=== PATIENT | female | born 1985 | race African-American/Black ===

== ENCOUNTER 2016-05-10 11:37 | Emergency (ER) | payer MEDICAID ==
[2016-05-10] MEDS ORDERED: ONDANSETRON 4 MG TAB.RAPDIS PO ONE (11:55)
--- NOTE | 2016-05-10 11:56 | ER Document Report ---
ED Medical Screen (RME) - General Chief Complaint: Cough Stated Complaint: TROUBLE BREATHING/COUGH Mode of Arrival: Ambulatory Information source: Patient Notes: Patient complains of cough and rib pain for the past 2 months. Patient feels like lateral sides of chest seemed to be swollen. Patient denies any fever or urinary symptoms. Patient denies any abdominal pain but does complain of some nausea. TRAVEL OUTSIDE OF THE [place] IN LAST 30 DAYS: No - Related Data Allergies/Adverse Reactions: No Known Allergies Allergy (Verified 04/15/16 08:38) Past Medical History - Past Medical History Cardiac Medical History: Reports: Hx Hypertension - on meds Denies: Hx Coronary Artery Disease, Hx Heart Attack Pulmonary Medical History: Reports: Hx Asthma - hx wheezing , Hx Bronchitis Denies: Hx COPD, Hx Pneumonia Neurological Medical History: Denies: Hx Cerebrovascular Accident, Hx Seizures Musculoskeltal Medical History: Denies Hx Arthritis Psychiatric Medical History: Reports: Hx Anxiety Past Surgical History: Reports: Hx Section - X 3, Hx Hysterectomy - Immunizations Hx Diphtheria, Pertussis, Tetanus Vaccination: Yes Physical Exam - Vital signs Vitals: Temp Pulse Resp BP Pulse Ox 98.3 F 107 H 20 149/86 H 99 05/10/16 11:47 05/10/16 11:47 05/10/16 11:47 05/10/16 11:47 05/10/16 11:47 - Respiratory Respiratory status: No respiratory distress Breath sounds: Nonproductive cough Notes: No objective swelling appreciated Course - Vital Signs Vital signs: Temp Pulse Resp BP Pulse Ox 98.3 F 107 H 20 149/86 H 99 05/10/16 11:47 05/10/16 11:47 05/10/16 11:47 05/10/16 11:47 05/10/16 11:47
[2016-05-10 12:28] LABS: ABSOLUTE EOSINOPHILS # (AUTO) 0.2 10^3/uL (0.0-0.6); ABSOLUTE LYMPHOCYTES (AUTO) 4.1 10^3/uL (0.5-4.7); ABSOLUTE MONOCYTES (AUTO) 0.6 10^3/uL (0.1-1.4); ABSOLUTE NEUT (AUTO) 5.4 10^3/uL (1.7-8.2); BASOPHILS % (AUTO) 0.4 % (0-2); EOSINOPHILS % (AUTO) 1.7 % (0-6); HEMATOCRIT 38.1 % (36.0-47.0); HEMOGLOBIN 12.4 g/dL (12.0-15.5); HGB HCT DIFFERENCE -0.9; LYMPHOCYTES % (AUTO) 39.8 % (13-45); MEAN CORPUSCULAR HEMOGLOBIN 29.2 pg (27.0-33.4); MEAN CORPUSCULAR HGB CONC 32.7 g/dL (32.0-36.0); MEAN CORPUSCULAR VOLUME 89 fl (80-97); MONOCYTES % (AUTO) 5.6 % (3-13); RED BLOOD COUNT 4.27 10^6/uL (3.72-5.28); RED CELL DISTRIBUTION WIDTH 15.7 % (11.5-14.0); SEGMENTED NEUTROPHILS % (AUTO) 52.5 % (42-78); WHITE BLOOD COUNT 10.3 10^3/uL (4.0-10.5)
[2016-05-10 12:30] LABS: APPEARANCE,URINE CLEAR; BILIRUBIN,URINE NEGATIVE (NEGATIVE); GLUCOSE, URINE NEGATIVE (NEGATIVE); KETONES,URINE NEGATIVE (NEGATIVE); LEUKOCYTE ESTERASE,URINE NEGATIVE (NEGATIVE); NITRITE,URINE NEGATIVE (NEGATIVE); PROTEIN,URINE NEGATIVE (NEGATIVE); UROBILINOGEN,URINE NEGATIVE mg/dL (<2.0)
[2016-05-10 12:52] LABS: ALANINE AMINOTRANSFERASE 46 U/L (9-52); ALBUMIN 4.4 g/dL (3.5-5.0); ALKALINE PHOSPHATASE 123 U/L (38-126); ANION GAP 11 (5-19); ASPARTATE AMINO TRANSFERASE 35 U/L (14-36); BILIRUBIN,TOTAL 0.7 mg/dL (0.2-1.3); BLOOD UREA NITROGEN 15 mg/dL (7-20); CALCIUM 9.7 mg/dL (8.4-10.2); CARBON DIOXIDE 30 mmol/L (22-30); CHLORIDE 100 mmol/L (98-107); CREATININE RESULT 0.57 mg/dL (0.52-1.25); GLUCOSE 92 mg/dL (75-110); LIPASE 64.1 U/L (23-300); POTASSIUM 4.9 mmol/L (3.6-5.0); SODIUM 140.9 mmol/L (137-145)
--- NOTE | 2016-05-10 14:04 | ER Document Report ---
ED General - General Chief Complaint: Cough Stated Complaint: TROUBLE BREATHING/COUGH Mode of Arrival: Ambulatory Notes: Patient presents to the emergency department with complaints of cough trouble breathing for the past month. She denies fever vomiting diarrhea. She also reports she woke up this morning and her body was really sore. TRAVEL OUTSIDE OF THE [place] IN LAST 30 DAYS: No - HPI Onset: Other Onset/Duration: Persistent Quality of pain: Achy Severity: Mild Pain Level: 1 Associated symptoms: Nonproductive cough Exacerbated by: Denies Relieved by: Denies Similar symptoms previously: Yes Recently seen / treated by doctor: Yes - Related Data Allergies/Adverse Reactions: No Known Allergies Allergy (Verified 04/15/16 08:38) Past Medical History - General Information source: Patient - Social History Smoking Status: Unknown if Ever Smoked Cigarette use (# per day): No Frequency of alcohol use: None Drug Abuse: None Occupation: none Lives with: Family Family History: Other - Mother has heart murmur and palpitations chronically - Past Medical History Cardiac Medical History: Reports: Hx Hypertension - on meds Denies: Hx Coronary Artery Disease, Hx Heart Attack Pulmonary Medical History: Reports: Hx Asthma - hx wheezing , Hx Bronchitis Denies: Hx COPD, Hx Pneumonia Neurological Medical History: Denies: Hx Cerebrovascular Accident, Hx Seizures Musculoskeltal Medical History: Denies Hx Arthritis Psychiatric Medical History: Reports: Hx Anxiety Past Surgical History: Reports: Hx Section - X 3, Hx Hysterectomy - Immunizations Hx Diphtheria, Pertussis, Tetanus Vaccination: Yes Review of Systems - Review of Systems Notes: Review HPI for review of systems., All other systems negative Physical Exam - Vital signs Vitals: Temp Pulse Resp BP Pulse Ox 98.3 F 107 H 20 149/86 H 99 05/10/16 11:47 05/10/16 11:47 05/10/16 11:47 05/10/16 11:47 05/10/16 11:47 - Notes Notes: PHYSICAL EXAMINATION: GENERAL: Well-appearing and in no acute distress Nontoxic looking HEAD: Atraumatic, normocephalic. EYES: Pupils equal round and reactive to light, extraocular movements intact, sclera anicteric, conjunctiva are normal. ENT: TM good,nares patent, oropharynx clear without exudates. clear voice, good airway Moist mucous membranes. hoarse voice NECK: Normal range of motion, supple without lymphadenopathy LUNGS: CTAB and equal. No wheezes rales or rhonchi. HEART: Regular rate and rhythm without murmurs ABDOMEN: Soft, no tenderness. No guarding, no rebound EXTREMITIES: Normal range of motion, no pitting edema. No cyanosis. NEUROLOGICAL: Cranial nerves grossly intact. Normal sensory/motor exams. PSYCH: Normal mood, normal affect. SKIN: Warm, Dry, normal turgor, no rashes or lesions noted Course - Re-evaluation Re-evalutation: 05/10/16 14:16 She instructed on postnasal drip. Patient instructed on decongestant but does not affect his blood pressure. Patient was also instructed to follow up with the family care provider for for physical. - Vital Signs Vital signs: Temp Pulse Resp BP Pulse Ox 97.5 F 92 18 141/87 H 97 05/10/16 14:17 05/10/16 14:17 05/10/16 14:17 05/10/16 14:17 05/10/16 14:17 - Laboratory Result Diagrams: 05/10/16 12:15 05/10/16 12:15 Laboratory results interpreted by me: 05/10/16 12:15 RDW 15.7 H - Diagnostic Test Radiology reviewed: Image reviewed, Reports reviewed Discharge - Discharge Clinical Impression: Cough, Difficulty breathing Condition: Stable Disposition: HOME, SELF-CARE Instructions: Family Physicians / Practices Additional Instructions: *You have been evaluated for a cough, difficulty breathing *Increase fluids *Monitor your temperature, take Tylenol as indicated *Follow up with a primary care provider within one week *Return to ED for increasing fever, cough, worsening condition, changes, needs Forms: Elevated Blood Pressure Referrals: MANJEET COLEMAN MD [Primary Care Provider] - Follow up in 3-5 days
[2016-05-10 14:20] VITALS: BP 141/87
== END 2016-05-10 14:20 | disposition home or self-care (01) ==
LOC: ER 11:37
DX: R05 Cough (principal); R06.00 Dyspnea, unspecified; R49.0 Dysphonia; I10 Essential (primary) hypertension; J45.909 Unspecified asthma, uncomplicated
CPT/HCPCS: 36415; 71020; 80053; 81001; 83690; 85025; 99283

== ENCOUNTER 2017-01-08 18:19 | Emergency (ER) | payer MEDICAID ==
--- NOTE | 2017-01-08 18:30 | ER Document Report ---
ED General - General Mode of Arrival: Medic Information source: Patient, Emergency Med Personnel TRAVEL OUTSIDE OF THE [place] IN LAST 30 DAYS: No - HPI Onset: Other - Refer to HPI notes <LUIS BRYANT - Last Filed: 01/08/17 18:57> <CHARLEE PARIKH - Last Filed: 01/09/17 00:35> - General Stated Complaint: FAINTING Time Seen by Provider: 01/08/17 18:27 - HPI Notes: Patient is a 31-year-old female presented emergency department via EMS for possible syncope. Patient ate breakfast this morning and then went to go sell plasma. After finishing she felt weak and went to eat with family members. Family states that she passed out some at the table mother eating; this lasted for a few minutes. Patient then drank some water and was feeling a little better. On the way home the patient was vomiting and had a syncopal episode again. Patient has a history of hypertension and takes both lisinopril and losartan for such. Patient does not know her doses of her hypertension medications. Patient has history of endometriosis and has had both hysterectomy and then a bilateral oophorectomy in July. She has also had a section 3. Patient states that she was going to [facility] and they were prescribing her hypertension medications. (LUIS BRYANT) - Related Data Allergies/Adverse Reactions: No Known Allergies Allergy (Verified 04/15/16 08:38) Past Medical History - General Information source: Patient - Social History Smoking Status: Current Every Day Smoker Cigarette use (# per day): Yes - 1/2 ppd Chew tobacco use (# tins/day): No Smoking Education Provided: No Frequency of alcohol use: Social Drug Abuse: None Family History: Other - Mother has heart murmur and palpitations chronically Patient has suicidal ideation: No Patient has homicidal ideation: No - Past Medical History Cardiac Medical History: Reports: Hx Hypertension - on meds Pulmonary Medical History: Reports: Hx Asthma, Hx Bronchitis Psychiatric Medical History: Reports: Hx Anxiety Past Surgical History: Reports: Hx Section - X 3, Hx Hysterectomy - Immunizations Hx Diphtheria, Pertussis, Tetanus Vaccination: Yes <LUIS BRYANT - Last Filed: 01/08/17 18:57> Review of Systems - Review of Systems Constitutional: See HPI, Weakness EENT: No symptoms reported Cardiovascular: See HPI, Syncope Respiratory: No symptoms reported Gastrointestinal: No symptoms reported Genitourinary: No symptoms reported Female Genitourinary: No symptoms reported Musculoskeletal: No symptoms reported Skin: No symptoms reported Hematologic/Lymphatic: No symptoms reported Neurological/Psychological: See HPI -: Yes All other systems reviewed and negative <LUIS BRYANT - Last Filed: 01/08/17 18:57> Physical Exam - Vital signs Interpretation: Hypotensive - Slightly <LUIS BRYANT - Last Filed: 01/08/17 18:57> <CHARLEE PARIKH - Last Filed: 01/09/17 00:35> - Vital signs Vitals: Resp BP Pulse Ox 16 103/92 H 99 01/08/17 18:34 01/08/17 18:34 01/08/17 18:34 - Notes Notes: GENERAL: Alert, interacts well. No acute distress. HEAD: Normocephalic, atraumatic. EYES: Appear normal. Pupils equal, round, and reactive to light. ENT: Moist mucus membranes, tongue midline. NECK: Full range of motion. Supple. Trachea midline. LUNGS: Clear to auscultation bilaterally, no wheezes, rales, or rhonchi. No respiratory distress. HEART: Regular rate and rhythm. No murmurs, gallops, or rubs. ABDOMEN: Morbidly obese. Soft, non-tender. Non-distended. Normal bowel sounds. EXTREMITIES: Moves all 4 extremities spontaneously. Normal strength. No edema. NEUROLOGICAL: Alert and oriented x3. Normal speech, patient whispers when speaking. No focal neurological deficits. GSC 15. PSYCH: Normal affect, normal mood. SKIN: Warm, dry, normal turgor. No rashes or lesions noted. (LUIS BRYANT) Course <LUIS BRYANT - Last Filed: 01/08/17 18:57> - Laboratory Result Diagrams: 01/08/17 23:20 01/08/17 20:35 <CHARLEE PARIKH - Last Filed: 01/09/17 00:35> - Re-evaluation Re-evalutation: 01/08/17 23:43 Patient's blood pressure came back up with IV fluids. The initial CBC had a slight leukocytosis, repeat CBC was improved. Chemistries and cardiac enzymes are unremarkable. Patient states she still feels poorly and feels weak. I suspect she may well have had a viral illness compounded by the plasma removal today. I have advised the patient we will discharge her home to bed rest. She should drink plenty of fluids and get plenty of rest. She should return to the emergency room if any new or worsening symptoms. (CHARLEE PARIKH) - Vital Signs Vital signs: Temp Pulse Resp BP Pulse Ox 16 174/84 H 85 L 01/09/17 00:17 01/09/17 00:17 01/09/17 00:16 - Laboratory Laboratory results interpreted by me: 01/08/17 01/08/17 01/08/17 19:40 20:35 20:35 WBC 14.7 H Hgb RDW 15.6 H Absolute Neutrophils 10.7 H Est GFR (Non-Af Amer) 57 L Glucose 116 H Calcium 8.3 L AST 37 H Albumin 3.4 L Urine Protein 100 H 01/08/17 23:20 WBC 13.9 H Hgb 11.8 L RDW 15.6 H Absolute Neutrophils 9.9 H Est GFR (Non-Af Amer) Glucose Calcium AST Albumin Urine Protein Discharge <LUIS BRYANT - Last Filed: 01/08/17 18:57> <CHARLEE PARIKH - Last Filed: 01/09/17 00:35> - Discharge Clinical Impression: Syncope and collapse, Weakness Condition: Stable Disposition: HOME, SELF-CARE Additional Instructions: Syncopal Episode: Syncope (fainting or near-fainting) can occur from many different health problems. Or it can be a simple fainting spell requiring no treatment. It is safe for you to go home, but further evaluation will likely be necessary. Your work-up may include tests for internal bleeding, heart disease, medication problems, or near-strokes. Tests are not always required, however, depending on the nature of your problem. The warning signs of an impending faint include: dizziness, lightheadedness , nausea, hot flashes, tingling, and weakness. If this happens, lay down and put your feet up, then wait until all of these symptoms have passed before standing up again. If these episodes become recurrent, or if you develop chest pain, heart palpitations, mental confusion, blurred vision, or headache, then you should call the physician, or go to the emergency room. Weakness: We did not find a definite cause for your weakness. This may require further medical tests. Weakness can be caused by infection, physical exhaustion , rapid weight loss, dehydration, or medicine side effects. Diseases of the muscles, heart, nerves, and blood vessels can make you weak. Sometimes the problem is simply depression or lack of exercise. You should get plenty of rest. Unless the doctor tells you otherwise, it's usually best to add short periods of regular mild exercise. Eat a nutritious diet with multiple small, low-sugar meals. If symptoms continue, additional medical evaluation will be necessary. Be sure to follow up as instructed. If you become very dizzy, nauseated, or feel like you're going to faint, lie down right away. Wait until the symptoms have passed before you get up again. Stand up slowly. Call the doctor or return if you develop chest pain, abdominal pain, severe headache, irregular heartbeat or very fast pulse, confusion, vision problems, fever, muscular pain, or any other new symptom. //////////////////////////////////////////////////////////////////////////////// //////////////////////////////////////////////////////////////////////////////// ///////////////// I suspect you most likely have a viral illness and the symptoms were compounded by the plasma removal today. You should get plenty of rest and sleep. Drink plenty of fluids. Take Tylenol for pain if needed. Follow-up with your doctor if you do not continue to improve. RETURN TO THE EMERGENCY ROOM IF ANY NEW OR WORSENING SYMPTOMS. Alex Attestation: 01/08/17 19:42 I personally performed the services described in the documentation, reviewed and edited the documentation which was dictated to the scribe in my presence, and it accurately records my words and actions. (CHARLEE PARIKH) Scribe Documentation - Scribe Written by Alex:: Alex Sousa, 01/08/2017 1845 acting as scribe for :: Iram <LUIS BRYANT - Last Filed: 01/08/17 18:57>
[2017-01-08] MEDS ORDERED: ONDANSETRON HCL INJ/PF 4 MG/2 ML SDV IV ONE (18:54)
[2017-01-08] MEDS: NORMAL SALINE 1000 ML 1,000 ML IV PRN ×2 (19:04→19:05)
[2017-01-08 20:09] LABS: APPEARANCE,URINE CLOUDY; BILIRUBIN,URINE NEGATIVE (NEGATIVE); GLUCOSE, URINE NEGATIVE (NEGATIVE); KETONES,URINE NEGATIVE (NEGATIVE); LEUKOCYTE ESTERASE,URINE NEGATIVE (NEGATIVE); NITRITE,URINE NEGATIVE (NEGATIVE); PROTEIN,URINE 100 mg/dL (NEGATIVE); URINE SPECIFIC GRAVITY 1.009; UROBILINOGEN,URINE NEGATIVE mg/dL (<2.0)
[2017-01-08 20:53] LABS: ABSOLUTE BASOPHILS # (AUTO) 0.1 10^3/uL (0.0-0.2); ABSOLUTE EOSINOPHILS # (AUTO) 0.1 10^3/uL (0.0-0.6); ABSOLUTE LYMPHOCYTES (AUTO) 2.8 10^3/uL (0.5-4.7); ABSOLUTE NEUT (AUTO) 10.7 10^3/uL (1.7-8.2); BASOPHILS % (AUTO) 0.5 % (0-2); EOSINOPHILS % (AUTO) 0.8 % (0-6); HEMATOCRIT 40.8 % (36.0-47.0); HEMOGLOBIN 13.3 g/dL (12.0-15.5); HGB HCT DIFFERENCE -0.9; MEAN CORPUSCULAR HEMOGLOBIN 29.4 pg (27.0-33.4); MEAN CORPUSCULAR HGB CONC 32.5 g/dL (32.0-36.0); MEAN CORPUSCULAR VOLUME 90 fl (80-97); MONOCYTES % (AUTO) 6.9 % (3-13); RED BLOOD COUNT 4.51 10^6/uL (3.72-5.28); RED CELL DISTRIBUTION WIDTH 15.6 % (11.5-14.0); SEGMENTED NEUTROPHILS % (AUTO) 72.8 % (42-78); WHITE BLOOD COUNT 14.7 10^3/uL (4.0-10.5)
[2017-01-08 21:13] LABS: ALANINE AMINOTRANSFERASE 43 U/L (9-52); ALBUMIN 3.4 g/dL (3.5-5.0); ALKALINE PHOSPHATASE 96 U/L (38-126); ANION GAP 10 (5-19); ASPARTATE AMINO TRANSFERASE 37 U/L (14-36); BILIRUBIN,DIRECT 0.4 mg/dL (0.0-0.4); BILIRUBIN,TOTAL 0.5 mg/dL (0.2-1.3); BLOOD UREA NITROGEN 18 mg/dL (7-20); CALCIUM 8.3 mg/dL (8.4-10.2); CARBON DIOXIDE 26 mmol/L (22-30); CHLORIDE 102 mmol/L (98-107); CREATINE KINASE 64 U/L (30-135); CREATININE RESULT 1.11 mg/dL (0.52-1.25); GLUCOSE 116 mg/dL (75-110); POTASSIUM 3.9 mmol/L (3.6-5.0); SODIUM 138.3 mmol/L (137-145); TOTAL PROTEIN 6.3 g/dL (6.3-8.2)
--- NOTE | 2017-01-08 21:52 | EKG REPORT ---
SEVERITY:- ABNORMAL ECG - SINUS RHYTHM PROBABLE LEFT ATRIAL ABNORMALITY PROBABLE LEFT VENTRICULAR HYPERTROPHY PROLONGED QT INTERVAL : Confirmed by: Yessenia Mathews 08-Jan-2017 21:51:48
[2017-01-08] MEDS ORDERED: DEXTROSE 5%-LACTATED RINGERS 1,000 ML IV ONE (22:04)
--- NOTE | 2017-01-08 22:44 | RADIOLOGY REPORT (SQ) ---
EXAM DESCRIPTION: CHEST SINGLE VIEW COMPLETED DATE/TIME: 01/08/2017 10:32 pm REASON FOR STUDY: hypotension COMPARISON: 05/10/2016 EXAM PARAMETERS: NUMBER OF VIEWS: One view. TECHNIQUE: Single frontal radiographic view of the chest acquired. RADIATION DOSE: NA LIMITATIONS: None. FINDINGS: LUNGS AND PLEURA: No opacities, masses or pneumothorax. No pleural effusion. MEDIASTINUM AND HILAR STRUCTURES: No masses. Contour normal. HEART AND VASCULAR STRUCTURES: Heart normal in size. Normal vasculature. BONES: No acute findings. HARDWARE: None in the chest. OTHER: No other significant finding. IMPRESSION: NO ACUTE RADIOGRAPHIC FINDING IN THE CHEST. TECHNICAL DOCUMENTATION: JOB ID: [id number]
[2017-01-08] MEDS ORDERED: KETOROLAC TROMETHAMINE INJ/PF 30 MG/1 ML SDV IV ONE (22:55)
[2017-01-08 23:30] LABS: ABSOLUTE BASOPHILS # (AUTO) 0.1 10^3/uL (0.0-0.2); ABSOLUTE EOSINOPHILS # (AUTO) 0.1 10^3/uL (0.0-0.6); ABSOLUTE LYMPHOCYTES (AUTO) 3.1 10^3/uL (0.5-4.7); ABSOLUTE MONOCYTES (AUTO) 0.7 10^3/uL (0.1-1.4); ABSOLUTE NEUT (AUTO) 9.9 10^3/uL (1.7-8.2); BASOPHILS % (AUTO) 0.7 % (0-2); EOSINOPHILS % (AUTO) 1.1 % (0-6); HEMATOCRIT 36.5 % (36.0-47.0); HEMOGLOBIN 11.8 g/dL (12.0-15.5); HGB HCT DIFFERENCE -1.1; MEAN CORPUSCULAR HGB CONC 32.2 g/dL (32.0-36.0); MEAN CORPUSCULAR VOLUME 90 fl (80-97); MONOCYTES % (AUTO) 5.3 % (3-13); RED BLOOD COUNT 4.06 10^6/uL (3.72-5.28); RED CELL DISTRIBUTION WIDTH 15.6 % (11.5-14.0); SEGMENTED NEUTROPHILS % (AUTO) 70.9 % (42-78); WHITE BLOOD COUNT 13.9 10^3/uL (4.0-10.5)
[2017-01-09 00:46] VITALS: BP 114/69
== END 2017-01-09 01:22 | disposition home or self-care (01) ==
LOC: ER 18:19
DX: R55 Syncope and collapse (principal); R53.1 Weakness; D72.829 Elevated white blood cell count, unspecified; R11.10 Vomiting, unspecified; I10 Essential (primary) hypertension; F17.210 Nicotine dependence, cigarettes, uncomplicated; J45.909 Unspecified asthma, uncomplicated; Z79.899 Other long term (current) drug therapy; Z98.890 Other specified postprocedural states
CPT/HCPCS: 93005; 99284; 96361; 96375; 96365; 36415; 87040; 82550; 85025; 80053; 81001; 84484; 71010; 93010; J1885; J2405; J7030

== ENCOUNTER 2017-07-12 12:28 | Emergency (ER) | payer MEDICAID ==
[2017-07-12 12:49] VITALS: BP 149/93
--- NOTE | 2017-07-12 14:08 | RADIOLOGY REPORT (SQ) ---
EXAM DESCRIPTION: CHEST PA/LAT COMPLETED DATE/TIME: 07/12/2017 1:59 pm REASON FOR STUDY: cough congestion fever COMPARISON: 05/10/2016 EXAM PARAMETERS: NUMBER OF VIEWS: two views TECHNIQUE: Digital Frontal and Lateral radiographic views of the chest acquired. RADIATION DOSE: NA LIMITATIONS: none FINDINGS: LUNGS AND PLEURA: No opacities, masses or pneumothorax. No pleural effusion. MEDIASTINUM AND HILAR STRUCTURES: No masses or contour abnormalities. HEART AND VASCULAR STRUCTURES: Heart normal size. No evidence for failure. BONES: No acute findings. HARDWARE: None in the chest. OTHER: No other significant finding. IMPRESSION: NO SIGNIFICANT RADIOGRAPHIC FINDING IN THE CHEST. TECHNICAL DOCUMENTATION: JOB ID: [id number] [employer]- All Rights Reserved Reading location - IP/workstation name: [email or web address]
--- NOTE | 2017-07-12 14:35 | ER Document Report ---
ED Flu Like - General Chief Complaint: Pain All Over Stated Complaint: FLU LIKE SYMPTOMS Time Seen by Provider: 07/12/17 13:03 Mode of Arrival: Ambulatory Information source: Patient Notes: 32-year-old female presents to ED for complaint of cough cold congestion body aches 4 days taken [id number] medication for this. TRAVEL OUTSIDE OF THE [place] IN LAST 30 DAYS: No - HPI Onset: Other - 4 days Timing/Duration: Better Severity: Moderate Pain Level: 3 CO exposure: No Shortness of breath: Moderate Associated symptoms: Body/muscle aches, Nonproductive cough, Rhinnorhea, Sinus pain/drainage, Sore throat Similar symptoms previously: Yes Recently seen / treated by doctor: No - Related Data Allergies/Adverse Reactions: No Known Allergies Allergy (Verified 07/12/17 13:51) Past Medical History - General Information source: Patient - Social History Smoking Status: Current Every Day Smoker Cigarette use (# per day): Yes - 1/2 ppd Chew tobacco use (# tins/day): No Smoking Education Provided: Yes - 4 min Frequency of alcohol use: Occasional Drug Abuse: Marijuana Occupation: [email or web address] Lives with: Family Family History: Arthritis, CAD, COPD, DM, Hyperlipidemia, Hypertension, Malignancy, Thyroid Disfunction, Other - Mother has heart murmur and palpitations chronically. denies: CVA Patient has suicidal ideation: No Patient has homicidal ideation: No - Past Medical History Cardiac Medical History: Reports: Hx Hypertension - on meds Pulmonary Medical History: Reports: Hx Asthma, Hx Bronchitis EENT Medical History: Reports: None Neurological Medical History: Reports: None Endocrine Medical History: Reports: None Renal/ Medical History: Reports: Hx Ovarian Cysts, Other - Endometriosis Malignancy Medical History: Reports: None GI Medical History: Reports: None Musculoskeltal Medical History: Reports Hx Arthritis Skin Medical History: Reports None Psychiatric Medical History: Reports: Hx Anxiety, Hx Depression Traumatic Medical History: Reports: None Infectious Medical History: Reports: None Past Surgical History: Reports: Hx Section - X 3, Hx Gynecologic Surgery - 6 surgeries, Hx Hysterectomy - Immunizations Hx Diphtheria, Pertussis, Tetanus Vaccination: Yes Review of Systems - Review of Systems Notes: Constitutional: [PRESENT: as per HPI. ABSENT: weight gain, weight loss] positive for fever chills headaches Eyes: [ABSENT: visual disturbances] Ears: [ABSENT: hearing changes] Nasopharyngeal: Runny nose congestion sore throat Cardiovascular: [ABSENT: chest pain, dyspnea on exertion, edema, orthropnea, palpitations] Respiratory: Cough and congestion Gastrointestinal: [ABSENT: abdominal pain, constipation, diarrhea, hematemesis, hematochezia, nausea, vomiting] Genitourinary: [ABSENT: dysuria, hematuria] Musculoskeletal: [ABSENT: joint swelling] body aches Integumentary: [ABSENT: rash, wounds] Neurological: [ABSENT: abnormal gait, abnormal speech, confusion, dizziness, focal weakness, syncope] Psychiatric: [ABSENT: anxiety, depression, homicidal ideation, suicidal ideation ] Endocrine: [ABSENT: cold intolerance, heat intolerance, menstrual abnormalities , polydipsia, polyuria] Hematologic/Lymphatic: [ABSENT: easy bleeding, easy bruising, lymphadenopathy] Physical Exam - Vital signs Vitals: Temp Pulse Resp BP Pulse Ox 98.2 F 105 H 20 149/93 H 98 07/12/17 12:46 07/12/17 12:46 07/12/17 12:46 07/12/17 12:46 07/12/17 12:46 - Notes Notes: PHYSICAL EXAMINATION: GENERAL: Well-appearing, well-nourished and in no acute distress. HEAD: Atraumatic, normocephalic. EYES: Pupils equal round and reactive to light, extraocular movements intact, conjunctiva are normal. ENT: Red swollen nasal turbinates, oropharynx red with postnasal drip without exudates. Moist mucous membranes. NECK: Normal range of motion, supple without lymphadenopathy LUNGS: Breath sounds clear to auscultation bilaterally and equal. No wheezes rales or rhonchi. HEART: Regular rate and rhythm without murmurs ABDOMEN: Soft, nontender, nondistended abdomen. No guarding, no rebound. No masses appreciated. Female : deferred Musculoskeletal: Normal range of motion, no pitting or edema. No cyanosis. NEUROLOGICAL: Cranial nerves grossly intact. Normal speech, normal gait. Normal sensory, motor exams PSYCH: Normal mood, normal affect. SKIN: Warm, Dry, normal turgor, no rashes or lesions noted. Course - Re-evaluation Re-evalutation: 07/12/17 19:35 Assessment consistent with an upper respiratory infection. Chest x-ray is negative. Discussed x-rays and assessment with patient and family and patient discharged home with instructions for upper respiratory infection care. Patient to follow-up with her primary doctor. Patient verbalized understanding of instructions. - Vital Signs Vital signs: Temp Pulse Resp BP Pulse Ox 98.2 F 105 H 20 149/93 H 98 07/12/17 12:46 07/12/17 12:46 07/12/17 12:46 07/12/17 12:46 07/12/17 12:46 - Diagnostic Test Radiology reviewed: Image reviewed, Reports reviewed Discharge - Discharge Clinical Impression: URI (upper respiratory infection) Qualifiers: URI type: unspecified URI Qualified Code(s): J06.9 - Acute upper respiratory infection, unspecified HTN (hypertension) Qualifiers: Hypertension type: unspecified Qualified Code(s): I10 - Essential (primary) hypertension Condition: Stable Disposition: HOME, SELF-CARE Instructions: Family Physicians / Practices Additional Instructions: UPPER RESPIRATORY ILLNESS: You have a viral infection of the respiratory passages -- a "cold." This common infection causes nasal congestion, drainage, and often sore throat and cough. It is highly contagious. The disease usually lasts about 10 to 14 days. There is no "cure" for the viral infection -- it must run its course. If there is a complication, such as bacterial infection in the nose, sinuses, middle ear, or bronchial tubes, antibiotics may be required. The antibiotics won't affect the virus. Drink plenty of fluids. A humidifier may help. An expectorant medication or decongestant may make you more comfortable. Use acetaminophen or ibuprofen for fever or aches. See the doctor if fever persists over two days, if there is any significant worsening of your symptoms, or if you simply fail to improve as expected. COUGH-SUPPRESSANT & EXPECTORANT MEDICATION: You are to use a cough medication as needed for relief of symptoms. This medicine is a combination of an expectorant (to make the mucous thinner and more easily "coughed up") and a cough suppressant (to reduce the frequency of coughing). The cough-suppressant medicine is related to narcotics. You may experience mild nausea and sleepiness. Some patients who are very sensitive to narcotics may have stomach pain from this medicine. Taking the medicine with food reduces these side effects. Do not drive or work with machinery until you know how this medicine affects you. The expectorant should have no side effects. Iodine-containing expectorants (such as organidin) should not be taken by persons with active thyroid disease unless approved by your doctor. Call the doctor if you develop shortness of breath, hives, rash, itching, lightheadedness, or severe nausea and vomiting. USE OF ACETAMINOPHEN (Tylenol): Acetaminophen may be taken for pain relief or fever control. It's much safer than aspirin, offering a wider range of "safe" dosages. It is safe during . Some brand names are Tylenol, Panadol, Datril, Anacin 3, Tempra, and Liquiprin. Acetaminophen can be repeated every four hours. The following are maximum recommended dosages: >89 pounds or adults 650 mg to 900 mg Acetaminophen can be repeated every four hours. Maximum dose not to exceed 4000 mg a day. SMOKING: If you smoke, you should stop smoking. The tar and chemicals in cigarette smoke are harmful. Smoking has been shown to cause: emphysema chronic bronchitis lung cancer mouth and throat cancer stomach and pancreas cancer premature aging defects In addition, smoking increases ear and lung infections in children of smokers. Things that can help your upper respiratory infection include Flonase which is [id number]-ynwdgls 2 sprays each nostril twice daily, salt and soda solution gargles 3-4 times a day, and saline nasal spray or nasal gel to each nostril. Salt and soda solution 1 quart of water 1 tablespoon of salt 1 teaspoon of baking soda Mixed 3 ingredients together and boil for 1 minute Placed in a covered quart jar Use 1/2 ounce of cold solution to gargle 3 times a day FOLLOW-UP CARE: If you have been referred to a physician for follow-up care, call the physician s office for an appointment as you were instructed or within the next two days. If you experience worsening or a significant change in your symptoms, notify the physician immediately or return to the Emergency Department at any time for re-evaluation. Forms: Elevated Blood Pressure, Smoking Cessation Education, Return to Work Referrals: MARY WYLIE MD [Primary Care Provider] - Follow up as needed [facility] [Provider Group] - Follow up as needed
== END 2017-07-12 14:50 | disposition home or self-care (01) ==
LOC: ER 12:28
DX: J06.9 Acute upper respiratory infection, unspecified (principal); R05 Cough; M79.1 Myalgia; J34.89 Other specified disorders of nose and nasal sinuses; J02.9 Acute pharyngitis, unspecified; R50.9 Fever, unspecified; I10 Essential (primary) hypertension; J45.909 Unspecified asthma, uncomplicated; F17.210 Nicotine dependence, cigarettes, uncomplicated; Z71.6 Tobacco abuse counseling
CPT/HCPCS: 71046; 99283; 99406